=== PATIENT | female | born 1925 | race Caucasian/White ===

== ENCOUNTER 2016-03-29 | Outpatient (CLI) | END 2016-03-29 02:41 | disposition critical access hospital (66) | CPT/HCPCS: A0425; A0427 ==

== ENCOUNTER 2016-03-29 03:02 | Emergency (ER) | payer MEDICARE, OTHER | END 2016-03-29 07:00 | disposition home or self-care (01) | DX: E11.649 Type 2 diabetes mellitus with hypoglycemia without coma (principal); I10 Essential (primary) hypertension; E03.9 Hypothyroidism, unspecified ==

== ENCOUNTER 2016-04-04 | Outpatient (CLI) | payer MEDICARE, OTHER | END 2016-04-04 04:03 | disposition EMS.NT | DX: R41.82 Altered mental status, unspecified (principal) ==

== ENCOUNTER 2016-04-05 10:33 | Outpatient (CLI) | payer MEDICARE, OTHER | END 2016-04-05 10:34 | disposition home or self-care (01) | DX: J20.9 Acute bronchitis, unspecified (principal) ==